=== PATIENT | male | born 2005 | race Caucasian/White ===

== ENCOUNTER 2023-01-20 08:50 | Observation (INO) ==
[2023-01-20 09:16] LABS: ABS Basophils 0.1 10^3/uL (0.0-0.1); ABS Eosinophils 0.1 10^3/uL (0.0-0.5); ABS Lymphocytes 1.4 10^3/uL (1.0-4.8); ABS Monocytes 0.6 10^3/uL (0.0-1.1); ABS Neutrophils 5.4 10^3/uL (1.5-7.6); ABS Nucleated RBC 0.01 10^3/ul; Hematocrit 40.5 % (38-53); Hemoglobin 14.1 g/dL (13.2-16.3); Mean Corpuscular Hemoglobin 29.9 pg (27-33); Mean Corpuscular Hgb Conc 34.8 g/dL (31-36); Mean Corpuscular Volume 85.9 fL (80-97); Mean Platelet Volume 8.8 fL (7.5-11.2); Nucleated Red Blood Cells % 0.1 %/100WBC (0.0-0.8); Platelet Count 226 10^3/uL (150-450); Red Blood Count 4.71 10^6/uL (4.06-5.63); Red Cell Distribution Width 13.5 % (12-17); White Blood Count 7.5 10^3/uL (3.6-10.2)
[2023-01-20 09:38] LABS: Albumin 4.4 g/dL (3.2-5.2); Albumin/Globulin Ratio 1.8 (1-3); Calcium 9.4 mg/dL (8.6-10.3); Creatinine, Serum 0.89 mg/dL (0.67-1.17); Globulin 2.5 g/dL (2-4); Potassium 4.2 mmol/L (3.5-5.0); Total Bilirubin 0.5 mg/dL (0.2-1.0); Total Protein 6.9 g/dL (6.4-8.9); eGFR CKD-EPI 126.6 (>60)
[2023-01-20] MEDS ORDERED: CLOBAZAM 10 MG PO ONE (13:58)
[2023-01-20] MEDS ORDERED: Lorazepam PYXIS KEY PRN (14:24)
[2023-01-20] MEDS ORDERED: LORazepam 2 mg VIAL 1 ml IV PUSH PRN (14:24)
[2023-01-20] MEDS: CLOBAZAM 10 MG PO SCH (22:24)
[2023-01-21] MEDS: CLOBAZAM 10 MG PO SCH (07:36)
[2023-01-21 08:48] LABS: ABS Eosinophils 0.2 10^3/uL (0.0-0.5); ABS Lymphocytes 1.6 10^3/uL (1.0-4.8); ABS Monocytes 0.7 10^3/uL (0.0-1.1); ABS Neutrophils 5.9 10^3/uL (1.5-7.6); Eosinophil % 1.8 %; Hematocrit 40.5 % (38-53); Hemoglobin 13.8 g/dL (13.2-16.3); Lymphocyte % 18.6 %; Mean Corpuscular Hemoglobin 29.4 pg (27-33); Mean Corpuscular Hgb Conc 34.1 g/dL (31-36); Mean Corpuscular Volume 86.3 fL (80-97); Mean Platelet Volume 9.4 fL (7.5-11.2); Platelet Count 231 10^3/uL (150-450); Red Blood Count 4.69 10^6/uL (4.06-5.63); Red Cell Distribution Width 13.8 % (12-17); White Blood Count 8.4 10^3/uL (3.6-10.2)
[2023-01-21] MEDS ORDERED: Influenza vaccine *QUAD* *2023-24* 0.5 ML SYRINGE IM ONE (09:00)
[2023-01-21 09:11] LABS: Calcium 9.4 mg/dL (8.6-10.3); Creatinine, Serum 0.92 mg/dL (0.67-1.17); Magnesium 1.9 mg/dL (1.9-2.7); Potassium 3.8 mmol/L (3.5-5.0); eGFR CKD-EPI 122.9 (>60)
[2023-01-21 10:18] VITALS: BP 114/64
== END 2023-01-21 12:45 | disposition home or self-care (01) ==
LOC: ED 08:50 → EDHOLD 08:50 → SSU 19:46
PROVIDERS: ADMIT Internal Medicine; ATTEND Internal Medicine

== ENCOUNTER 2023-04-03 07:36 | Observation (INO) ==
[2023-04-03] MEDS: NS 0.9% 1000 ml BAG 1,000 ML IV ONE (08:15)
[2023-04-03 08:16] LABS: ABS Eosinophils 0.1 10^3/uL (0.0-0.5); ABS Lymphocytes 1.7 10^3/uL (1.0-4.8); ABS Monocytes 0.6 10^3/uL (0.0-1.1); ABS Neutrophils 6.1 10^3/uL (1.5-7.6); ABS Nucleated RBC 0.01 10^3/ul; Eosinophil % 0.7 %; Hematocrit 41.7 % (38-53); Hemoglobin 14.2 g/dL (13.2-16.3); Lymphocyte % 20.1 %; Mean Corpuscular Hemoglobin 29.5 pg (27-33); Mean Corpuscular Hgb Conc 34.1 g/dL (31-36); Mean Corpuscular Volume 86.6 fL (80-97); Mean Platelet Volume 8.8 fL (7.5-11.2); Nucleated Red Blood Cells % 0.1 %/100WBC (0.0-0.8); Platelet Count 221 10^3/uL (150-450); Red Blood Count 4.82 10^6/uL (4.06-5.63); White Blood Count 8.5 10^3/uL (3.6-10.2)
[2023-04-03 08:36] LABS: Albumin 4.3 g/dL (3.2-5.2); Albumin/Globulin Ratio 1.7 (1-3); Calcium 9.5 mg/dL (8.6-10.3); Creatinine, Serum 0.93 mg/dL (0.67-1.17); Globulin 2.6 g/dL (2-4); Magnesium 1.8 mg/dL (1.9-2.7); Potassium 4.2 mmol/L (3.5-5.0); Total Bilirubin 0.4 mg/dL (0.2-1.0); Total Protein 6.9 g/dL (6.4-8.9); eGFR CKD-EPI 121.3 (>60)
[2023-04-03] MEDS ORDERED: LORazepam 2 mg VIAL 1 ml ONE (09:52)
[2023-04-03] MEDS ORDERED: Lorazepam PYXIS KEY PRN (09:59)
[2023-04-03] MEDS: LORazepam 2 mg VIAL 1 ml IV PUSH ONE (10:09)
[2023-04-03] MEDS: levETIRAcetam 1000MG IVPREMIX 1,000 MG/100 ML BAG IVPB ONE (10:11)
[2023-04-03] MEDS: LaCOSAMide VIAL 200 MG in NS 0.9% 50 ML 50 ML IV SCH ×2 (12:09→21:07)
[2023-04-03] MEDS: CloBAZam 10 mg TAB (NF) PO SCH ×2 (12:15→21:01)
[2023-04-03] MEDS: Lactated Ringers 1000 ml BAG 1,000 ML IV ONE (13:56)
[2023-04-03] MEDS: Magnesium Sulfate 2 gm BAG 2 GM/50 ML BAG IVPB ONE (13:58)
[2023-04-03 15:01] LABS: Urine Appearance No Cx Clear (Clear); Urine Bilirubin No Culture Negative (Negative); Urine Blood No Culture Negative (Negative); Urine Color No Culture Light-Yellow; Urine Glucose No Culture Negative (Negative); Urine Ketones No Culture Negative (Negative); Urine Leukocytes No Culture Negative Leu/uL (Negative); Urine Nitrite No Culture Negative (Negative); Urine Protein No Culture Negative (Negative); Urine Specific Gravity No Cx 1.021 (1.002-1.030); Urine Urobilinogen No Cx Negative (Negative); Urine pH No Culture 5.5 (5.0-8.0)
[2023-04-03 15:13] LABS: Urine Bacteria No Culture Absent /HPF (Absent); Urine Red Blood Cell No Cult Trace(0-2/hpf) /HPF (0-Trace); Urine White Blood Cell No Cult Trace(0-5/hpf) /HPF (0-Trace)
[2023-04-03 15:22] LABS: Urine Benzodiazepine Screen None Detected (None Detect); Urine Cannabinoids Screen None Detected (None Detect); Urine Opiates Screen None Detected (None Detect)
[2023-04-03] MEDS: CloBAZam 10 mg TAB (NF) PO ONE (15:35)
[2023-04-03] MEDS: Enoxaparin 40 MG/0.4 ML SYR SUBCUT SCH (15:35)
[2023-04-03] MEDS ORDERED: LaCOSAMide VIAL 200 MG in NS 0.9% 50 ML 50 ML IV SCH (16:00)
[2023-04-03] MEDS ORDERED: levETIRAcetam IV 750 MG in NS 0.9% 100 ml BAG 100 ML IVPB SCH (22:00)
[2023-04-03] MEDS: levETIRAcetam IV 750 MG in NS 0.9% 100 ml BAG 100 ML IVPB SCH (22:26)
[2023-04-04] MEDS: CloBAZam 10 mg TAB (NF) PO SCH (08:03)
[2023-04-04 10:18] VITALS: BP 102/80
== END 2023-04-04 10:45 | disposition home or self-care (01) ==
LOC: EDHOLD 07:36 → ED 07:36 → MED 15:13
PROVIDERS: ADMIT Hospitalist; ATTEND Hospitalist